=== PATIENT | female | born 1975 | race Caucasian/White ===

== ENCOUNTER → 2023-10-27 02:20 | Outpatient (CLI) | payer BC, SELFPAY ==
--- NOTE | 2023-10-27 06:45 | DI.MAMMO_ITS ---
Exam(s) MAMMO SCREENING EXAM: MAMMO SCREENING CLINICAL HISTORY: screening,baseline, z00.00,[facility]. TECHNIQUE: Bilateral full field digital CC and MLO mammographic images were obtained with 3D tomosyn thesis and utilizing computer aided detection (CAD). COMPARISON: None. This is a baseline mammogram on this 48-year-old. FINDINGS: There are no CAD designations. There are no spiculated masses nor malignant appearing microcalcification groups. There is no significant architectural distortion nor skin thickening-retraction. IMPRESSION: No radiographic evidence of malignancy. BI-RADS Category 1 - Negative Breast Density - Category B - Scattered areas of fibroglandular density Breast density Category C or D implies that the patient has dense breast tissue. Dense breast tissue can make it harder to find cancer on a mammogram. Dense breast tissue is also associated with an incr eased risk of breast cancer. This information about the result of the mammogram report was provided to the patient to raise their awareness. Use this report when you speak with the patient about their risks for breast cancer, which includes their family history. At that time, you may recommend additional screening tests (Ultrasoun d or MRI) as these tests may add significant information. A negative radiographic report should not delay biopsy if a dominant or clinically suspicious mass is present. Up to ten percent of cancers are not identified on mammography. A negative report may reinforce clinical impression. Adenosis and dense breasts may obscure an underlying neoplasm. False positive reports average 6 to 10%. Patient will receive a letter notifying them of these results.
== END ==
PROVIDERS: Visit Provider Nurse Practitioner Family
DX: Z00.00 Encounter for general adult medical examination without abnormal findings (principal)
CPT/HCPCS: 77063; 77067

== ENCOUNTER 2023-11-12 02:25 | Outpatient (CLI) | payer BC, SELFPAY ==
[2023-11-12 07:54] LABS: BUN 7 mg/dL (7-18); CREATININE 0.8 mg/dL (0.55-1.02); Calcium 8.5 mg/dL (8.5-10.1); Calculated LDL 92 mg/dL (<100); Chloride 108 mmol/L (98-107); Cholesterol 160 mg/dL (<200); Estimated GFR 90.83 (mL/min/1.73m2); Glucose 117 mg/dL (74-106); HDL Cholesterol 53 mg/dL (40-60); Potassium 4.2 mmol/L (3.5-5.1); Sodium 141 mmol/L (136-145); Triglyceride 78 mg/dL (<150)
== END 2023-11-12 02:26 | disposition home or self-care (01) ==
LOC: LBO 02:25
PROVIDERS: Visit Provider Nurse Practitioner Family
DX: Z00.00 Encounter for general adult medical examination without abnormal findings (principal); Z79.899 Other long term (current) drug therapy
CPT/HCPCS: 36415; 80048; 80061; 83036

== ENCOUNTER 2023-11-12 09:38 | Outpatient (REF) | payer BC, SELFPAY ==
--- NOTE | 2023-11-12 09:00 | PAPFT_PTH ---
PATIENT: Minda Rogers LOC: [facility] U#:[id number] AGE/SX: 48/F ROOM: RE11/12/[address]: Saida Gutierrez : 1975 BED: DIS: 11/12/2023 SPEC #: [id number] RECD: 11/12/23 13:02 STATUS: ANTHONY LOVELACE #: [id number] PAMELA: 11/12/23 09:[address]: Saida Gutierrez DEPT: [facility] Cytology RECD BY: Rosamaria Dickens ENTERED: 11/12/23 13:02 SP TYPE: PAPFT OTHR DR: Unknown,Unknown Tissues: 1 - CX/ENDOCX FOR PAP SMEARS Procedures: PAP THIN PREP/[facility] Screening HPV DNA PROBE Comments: [id number] (HPV 16 & 18/45)
== END 2023-11-12 09:39 | disposition home or self-care (01) ==
LOC: LBN 09:38
PROVIDERS: Visit Provider Obstetrics & Gynecology Gynecology
DX: N92.6 Irregular menstruation, unspecified (principal); Z72.0 Tobacco use; Z01.419 Encounter for gynecological examination (general) (routine) without abnormal findings
CPT/HCPCS: 88142; 87624

== ENCOUNTER 2025-01-24 02:23 | Outpatient (CLI) | payer OTHER, SELFPAY ==
--- NOTE | 2025-01-24 11:52 | DI.MAMMO_ITS ---
Exam(s) MAMMO SCREENING EXAM: MAMMO SCREENING CLINICAL HISTORY: screening,z00.00,[facility]. TECHNIQUE: Bilateral full field digital CC and MLO mammographic images were obtained with 3D tomosynthesis and utilizing computer aided detection (CAD). COMPARISON: Prior baseline mammogram of October 2023 was reviewed. FINDINGS: There has been no significant change in the appearance and distribution of the fibroglandular tissue. There are no CAD designations. There are no new spiculated masses nor malignant appearing microcalcification groups. There is no significant architectural distortion nor skin thickening-retraction. IMPRESSION: No radiographic evidence of malignancy. BI-RADS Category 1 - Negative Breast Density - Category B - There are scattered areas of fibroglandular density. Breast density Category C or D implies that the patient has dense breast tissue. Dense breast tissue can make it harder to find cancer on a mammogram. Dense breast tissue is also associated with an increased risk of breast cancer. This information about the result of the mammogram report was provided to the patient to raise their awareness. Use this report when you speak with the patient about their risks for breast cancer, which includes their family history. At that time, you may recommend additional screening tests (Ultrasound or MRI) as these tests may add significant information. A negative radiographic report should not delay biopsy if a dominant or clinically suspicious mass is present. Up to ten percent of cancers are not identified on mammography. A negative report may reinforce clinical impression. Adenosis and dense breasts may obscure an underlying neoplasm. False positive reports average 6 to 10%. Patient will receive a letter notifying them of these results.
== END 2025-01-24 02:43 ==
LOC: DI 02:23
PROVIDERS: PCP Nurse Practitioner Family; Visit Provider Nurse Practitioner Family
DX: Z00.00 Encounter for general adult medical examination without abnormal findings (principal); Z12.31 Encounter for screening mammogram for malignant neoplasm of breast
CPT/HCPCS: 77063; 77067